=== PATIENT | female | born 1985 | race Caucasian/White ===

== ENCOUNTER 2017-03-30 12:04 | Day surgery (SDC) | payer BC ==
[~2017-03-30] VITALS: Ht 170.2 cm; Wt 124.7 kg
[~2017-03-30 12:04] MED LIST: ENDOCET 5-3251 EACH PO; GLUCOPHAGE500 MG PO; IBUPROFEN800 MG PO; MUCINEX DM ER1 EACH PO; PRENATABS FA T1 EACH PO; ZYRTEC10 M3 PO
[2017-03-30 12:25] VITALS: BP 142/85
[2017-03-30 12:57] LABS: BASOPHIL COUNT 0.1 K/uL (0-0.1); EOSINOPHIL (%) 4.6 % (0-5); EOSINOPHIL COUNT 0.2 K/uL (0-0.3); IMMATURE GRANULOCYTE (%) 0.4 % (0.0-0.7); INSTRUMENT ABS NEUTROPHIL CT 3.2 K/uL; LYMPHOCYTE COUNT 1.4 K/uL (1.0-2.8); MCH 28.5 PG (29.0-34.0); MCHC 33.1 G/DL (30.0-36.0); MCV 86.2 FL (83-99); MEAN PLAT.VOLUME 9.8 uM^3 (9.5-12.4); MONOCYTE (%) 6.6 % (3-12); MONOCYTE COUNT 0.4 K/uL (0-0.8); NEUTROPHIL (%) 61.3 % (45-76); NEUTROPHIL COUNT 3.2 K/uL (1.8-6.4); PLATELET COUNT 293 K/uL (156-360); RBC DIS.WIDTH-CV 13.2 % (11.8-14.6); RBC DIS.WIDTH-SD 40.7 % (39-53); RED BLOOD COUNT 4.87 M/uL (3.80-5.20); WHITE BLOOD COUNT 5.3 K/uL (4.1-10.2)
[2017-03-30] MEDS ORDERED: IBUPROFEN800 MG PO (17:25)
[2017-03-30] MEDS ORDERED: HYDROCODON-ACE1 EAC7 PO (17:25)
[2017-03-30 18:13] VITALS: BP 121/56
[2017-03-30 19:07] VITALS: BP 139/76
== END 2017-03-30 19:12 | disposition home or self-care (01) ==
LOC: SDC 12:04
PROVIDERS: Obstetrics & Gynecology
PROC: 10D17ZZ Extraction of Products of Conception, Retained, Via Natural or Artificial Opening (ICD-10-PCS; principal; 2017-03-30)
DX: O02.1 Missed abortion (principal); E28.2 Polycystic ovarian syndrome; E66.01 Morbid (severe) obesity due to excess calories; Z68.41 Body mass index [BMI] 40.0-44.9, adult
CPT/HCPCS: 85025; 86850; 86900; 86901; 88305; J0330; J0690; J1100; J2250; J2405; J3010

== ENCOUNTER 2017-07-31 11:06 | Inpatient (IN) | payer BC ==
[~2017-07-31] VITALS: Ht 170.2 cm; Wt 124.5 kg
[2017-07-31] VITALS (12 sets, daily range): BP systolic 121–149; BP diastolic 57–77
[~2017-07-31 11:06] MED LIST changes: +HYDROCODON-ACE1 EAC7 PO
[2017-07-31] MEDS ORDERED: ASPIR 8181 M1 PO (11:49)
[2017-07-31 13:23] LABS: BASOPHIL (%) 0.4 % (0-1); EOSINOPHIL (%) 1.2 % (0-5); EOSINOPHIL COUNT 0.1 K/uL (0-0.3); HEMATOCRIT 42.2 % (36.0-46.0); IMMATURE GRANULOCYTE (%) 0.4 % (0.0-0.7); LYMPHOCYTE (%) 15.1 % (15-42); LYMPHOCYTE COUNT 0.8 K/uL (1.0-2.8); MCH 27.9 PG (29.0-34.0); MCHC 33.2 G/DL (30.0-36.0); MCV 84.2 FL (83-99); MONOCYTE (%) 6.8 % (3-12); MONOCYTE COUNT 0.4 K/uL (0-0.8); NEUTROPHIL (%) 76.1 % (45-76); RBC DIS.WIDTH-CV 14.6 % (11.8-14.6); RBC DIS.WIDTH-SD 44.2 % (39-53); RED BLOOD COUNT 5.01 M/uL (3.80-5.20); WHITE BLOOD COUNT 5.2 K/uL (4.1-10.2)
[2017-07-31 13:49] LABS: ANISOCYTOSIS 1+; PLAT.SUFFICIENCY ADEQUATE; PLATELET CLUMPS PRESENT - PLATELET COUNT APPEARS ADQ.; PLATELET COUNT UNABLE TO REPORT K/uL (156-360)
[2017-07-31 16:34] LABS: AMPHETAMINE NEGATIVE (500 ng/mL); BARBITURATES NEGATIVE (200 ng/mL); BENZODIAZEPINES NEGATIVE (150 ng/mL); BUPRENORPHINE NEGATIVE (10 ng/mL); COCAINE NEGATIVE (150 ng/mL); METHADONE NEGATIVE (200 ng/mL); METHAMPHETAMINE NEGATIVE (500 ng/mL); OPIATES (MORPHINE) NEGATIVE (100 ng/mL); OXYCODONE NEGATIVE (100 ng/mL); PHENCYCLIDINE NEGATIVE (25 ng/mL); PROPOXYPHENE NEGATIVE (300 ng/mL); THC CANNABINOIDS NEGATIVE (50 ng/mL); TRICYCLIC ANTIDEPRESSANTS NEGATIVE (300 ng/mL)
[2017-08-01] VITALS (15 sets, daily range): BP systolic 105–159; BP diastolic 53–84
[2017-08-01 16:38] LABS: Cytomegalovirus IgM Antibody+ <30.00 AU/mL (<30.00)
[2017-08-02] VITALS (19 sets, daily range): BP systolic 110–168; BP diastolic 52–78
[2017-08-02 11:08] LABS: TOXOPLASMA IgM (ACUTE ONLY)+ <8.00 AU/mL (<8.00)
[2017-08-02 13:59] LABS: HSV 1 IgM Screen Negative (Negative); HSV 2 IgM Screen Negative (Negative)
[2017-08-03] VITALS (18 sets, daily range): BP systolic 106–140; BP diastolic 57–80
== END 2017-08-03 11:58 | disposition home or self-care (01) | DRG 770 ==
LOC: LDRP-OP 11:06 → 2WEST 11:08
PROVIDERS: Midwife; Obstetrics & Gynecology
DX: O02.1 Missed abortion (principal); E66.01 Morbid (severe) obesity due to excess calories; O99.214 Obesity complicating childbirth; Z68.41 Body mass index [BMI] 40.0-44.9, adult; Z3A.17 17 weeks gestation of pregnancy; Z80.3 Family history of malignant neoplasm of breast; Z80.41 Family history of malignant neoplasm of ovary; O73.0 Retained placenta without hemorrhage; O69.1XX0 Labor and delivery complicated by cord around neck, with compression, not applicable or unspecified
CPT/HCPCS: 85025; 86645 90; 86762 90; 86778 90; 88305; G0378; J0595; J7120